=== PATIENT | male | born 1985 | race Two or more races ===

== ENCOUNTER 2017-08-14 11:45 | Emergency (ER) | payer SELFPAY ==
[2017-08-14 12:12] VITALS: BP 115/79; PULSE 59; TEMP 98.2; BMI 26.6
[2017-08-14] MEDS ORDERED: IBUPROFEN 400 MG TABLET (FP) PO ONE ×2 (12:39→12:42)
[2017-08-14] MEDS ORDERED: PENICILLIN V POTASSIUM 500 MG TABLET PO ONE (12:39)
--- NOTE | 2017-08-14 12:43 | PDOC ---
History of Present Illness - General Chief Complaint: Toothache Stated Complaint: RIGHT EAR TO JAW/DENTAL PAIN Time Seen by Provider: 08/14/17 12:10 - History of Present Illness Initial Comments: 08/14/17 13:03 Chief complaint: Toothache History of present illness: Patient with a toothache, right upper incisor, 2-3 days. Review of systems: No fever/chills, swelling of the gums or face, difficulty breathing or swallowing. Past medical history: Healthy female, no significant medical or surgical problems past her present Social/family history reviewed and noncontributory Physical exam: Alert and oriented well-developed well-nourished no acute distress cooperative Afebrile, vital signs normal HEENT: There is tenderness with pressure on the right upper incisor. Central DK is present. No gingival inflammation or swelling. No facial inflammation or swelling. Ears and throat clear Impression: Toothache Plan: Antibiotics, Motrin, and dental follow-up as soon as possible. Patient understands that his infection will not clear up completely and less a dentist removes the infection. Fully ambulatory and in no significant pain or other distress upon discharge to follow-up as recommended Past History - Past Medical History Allergies/Adverse Reactions: Allergies Allergy/AdvReac Type Severity Reaction Status Date / Time No Known Allergies Allergy Verified 08/14/17 12:06 Home Medications: Ambulatory Orders Ibuprofen 800 mg PO TID PRN #20 tablet 08/14/17 Penicillin V Potassium [Pen Vee K -] 500 mg PO BID #14 tablet 08/14/17 COPD: No Other medical history: DENIES - Suicide/Smoking/Psychosocial Hx Smoking History: Former smoker Have you smoked in the past 12 months: Yes If you are a former smoker, when did you quit?: 2017 Information on smoking cessation initiated: Yes 'Breaking Loose' booklet given: 08/14/17 Hx Alcohol Use: Yes (SOCIAL) Drug/Substance Use Hx: No Substance Use Type: None *Physical Exam - Vital Signs Last Vital Signs Temp Pulse Resp BP Pulse Ox 98.2 F 59 L 15 115/79 98 08/14/17 11:57 08/14/17 11:57 08/14/17 11:57 08/14/17 11:57 08/14/17 11:57 *DC/Admit/Observation/Transfer Diagnosis at time of Disposition: Tooth ache - Discharge Dispostion Disposition: HOME Condition at time of disposition: Stable Admit: No - Prescriptions Prescriptions: Ibuprofen 800 mg PO TID PRN #20 tablet PRN Reason: Pain Penicillin V Potassium [Pen Vee K -] 500 mg PO BID #14 tablet - Referrals Referrals: Thompson Florian [Staff Physician] - 24 hours - Patient Instructions Printed Discharge Instructions: DI for Dental Pain Additional Instructions: Antibiotics and pain medication as directed This will not cure your toothache, but just prevent infection from spreading. You must see a dentist for definitive treatment for the condition to completely resolved. - Post Discharge Activity
== END 2017-08-14 12:52 | disposition home or self-care (01) ==
LOC: FER 11:45
CPT/HCPCS: 99282-25